=== PATIENT | female | born 1945 | race Caucasian/White ===

== ENCOUNTER 2024-01-22 07:00 | Day surgery (SDC) | payer OTHER ==
--- NOTE | 2024-01-21 10:37 | RAD REPORT ---
EXAM DESCRIPTION: RAD - Chest Pa And Lat (2 Views) - 01/21/2024 10:29 am CLINICAL HISTORY: pre op for director geophysical laboratory, hypertension, shortness of breath COMPARISON: CHEST PA AND LAT 2 VIEW dated 11/10/2015; CHEST PA AND LAT 2 VIEW dated 07/10/2015; CHEST PA AND LAT 2 VIEW dated 12/27/2014; CHEST PA AND LAT 2 VIEW dated 12/31/2013 FINDINGS: Lines: None. Lungs: No evidence of edema or pneumonia. Mild coarsening of the pulmonary interstitium which is prob ably chronic. Pleural: No significant pleural effusions or pneumothorax. Cardiac: Cardiomegaly. Mediastinum: Within normal limits. Bones: No acute fractures. ACDF in the cervical spine. Other: None IMPRESSION: No acute cardiopulmonary disease.
[2024-01-21 10:50] LABS: Absolute Eosinophils 0.1 K/uL (0-0.5); Absolute Lymphocytes (CBC) 1.8 K/uL (0.7-4.9); Absolute Monocytes 0.3 K/uL (0.1-1.3); Absolute Neutrophil 2.3 K/uL (1.8-8.0); Eosinophils % 1.6 % (0-4.4); Hematocrit 39.9 % (36.0-45.0); Hemoglobin 13.2 g/dL (12.0-15.0); Lymphocytes % 40.6 % (15.3-44.8); MCH 30.3 pg (27.0-35.0); MCV 91.5 fL (80-100); MPV 7.4 fL (7.6-11.3); Monocytes % 6.9 % (3.3-12.3); Neutrophils % 49.9 % (41.7-73.7); Platelets 219 thou/uL (152-406); RBC Red Blood Cell Count 4.36 M/uL (3.86-4.86); Red Cell Distribution Width 14.2 % (12.1-15.2)
[2024-01-21 10:58] LABS: PT Prothrombin Time 10.3 SECONDS (9.5-12.5); PTT, Activated Partial Thromb 30.7 SECONDS (24.3-36.9); Protime INR 0.93
[2024-01-21 11:07] LABS: Anion Gap 5.8 mEq/L (5.0-15.0); Potassium 3.8 mEq/L (3.5-5.1)
--- NOTE | 2024-01-21 13:06 | EKG ---
Test Date: 2024-01-21 Test Time: 09:57:58 [employer]: PEDRITO MEASUREMENT RESULTS: Intervals: Rate: 67 NJ: 160 QRSD: 86 QT: 402 QTc: 424 [place]: P: 42 NJ: 160 QRS: -2 T: 45 INTERPRETIVE STATEMENTS: Normal sinus rhythm Normal ECG Compared to ECG 09/21/2021 10:30:17 No significant changes Electronically Signed On 01-21-24 13:05:37 CDT by Jayden Bush
[2024-01-22] MEDS: NA CHLORIDE 0.9% 500 ML ONE (07:56)
[2024-01-22] MEDS ORDERED: MIDAZOLAM HCL 2 MG/2 ML INJ ONE (07:57)
[2024-01-22] MEDS ORDERED: FENTANYL CITR 100 MCG/2 ML ONE (07:57)
[2024-01-22] MEDS ORDERED: VERAPAMIL HCL 10 MG/4 ML VIAL IV ONE (07:57)
[2024-01-22] MEDS ORDERED: LIDOCAINE 1% 20 ML MDV ONE (07:57)
[2024-01-22] MEDS ORDERED: HEPA 1000U/500MLS 2,000 UNIT/1,000 ML BAG IV ONE (07:57)
[2024-01-22] MEDS ORDERED: CLOPIDOGREL 75 MG TABLET ONE (07:58)
[2024-01-22] MEDS ORDERED: ASPIRIN 325 MG TAB ONE (07:58)
[2024-01-22] MEDS ORDERED: HEPARIN 5000 UNIT/ML 1 ML VIAL ONE (07:58)
[2024-01-22] MEDS ORDERED: TICAGRELOR 90 MG TABLET PO ONE (07:58)
[2024-01-22] MEDS ORDERED: HEPARIN 10,000 UNIT/10 ML VIAL IV ONE (07:58)
[2024-01-22] MEDS ORDERED: ATROPINE SULF 1 MG/10 ML SYR IV ONE (07:58)
--- NOTE | 2024-01-22 09:42 | OP ---
Date of Procedure: 01/22/2024 Surgeon: Ventura Knight Procedure Performed: Selective coronary angiogram. Complications: None. Estimated Blood Loss: Less than 10 cc. Sedation Time: 20 minutes with 1 of Versed and 50 of fentanyl. Access: Right radial closed by TR band. Description Of Procedure: After risks and benefits were explained to the patient, the patient agreed to proceed with the procedure and signed informed consent. The patient was brought back to the laborer [employer] farm, placed on the table, prepped and draped in a sterile fashion. Time-out was performed. Sedatio n was administered. Right radial 6-[place] access was obtained using an ultrasound-guided micropunctu re technique. A [place] 4 catheter was advanced over a J-wire to the aortic root. Selective coronary angiogram was d one of the left and right coronary systems. [place] 4 was removed over a J-wire. Sheath was removed a nd access was closed with a TR band. The patient was moved back to recovery in stable condition. Findings: 1.Left main is normal. 2.LAD is normal. 3.Left circ is normal. 4.RCA is normal. Assessment And Plan: Normal coronary anatomy. The plan will be to continue medical management. BRODIE/VENUS Voice ID: [id number] Report ID: [id number]
[2024-01-22 10:49] VITALS: BP 169/58; O2SAT 92
== END 2024-01-22 10:55 | disposition home or self-care (01) ==
LOC: CCL 07:00
PROVIDERS: ATTEND Internal Medicine Interventional Cardiology
DX: R07.9 Chest pain, unspecified (principal); I34.0 Nonrheumatic mitral (valve) insufficiency; I10 Essential (primary) hypertension; E78.2 Mixed hyperlipidemia; E11.9 Type 2 diabetes mellitus without complications; R42 Dizziness and giddiness; Z79.82 Long term (current) use of aspirin; Z79.84 Long term (current) use of oral hypoglycemic drugs; Z79.899 Other long term (current) drug therapy; Z88.8 Allergy status to other drugs, medicaments and biological substances; Z82.49 Family history of ischemic heart disease and other diseases of the circulatory system
CPT/HCPCS: 36415; 71046; 76937; 80048; 82947; 85025; 85610; 85730; 93005; 93454; 99152; 99153; C1893; J0461; J1644; J2001; J2250; J3010; J7040; Q9966